=== PATIENT | female | born 1970 | race Caucasian/White ===

== ENCOUNTER → 2024-07-08 08:36 | Outpatient (REF) | payer BC, SELFPAY ==
[2024-07-08 10:02] LABS: % Eosinophils 2.4 % (0-6); % Immature Granulocytes 0.4 % (0-0.5); % Monocytes 8.8 % (1.7-9.3); % Neutrophils 53.4 % (42.2-75.2); Absolute Basophils 0.1 10^3/uL (0-0.2); Absolute Eosinophils 0.1 10^3/uL (0-0.7); Absolute Lymphocytes 1.7 10^3/uL (1.2-3.4); Absolute Monocytes 0.5 10^3/uL (0.1-0.6); Absolute Neutrophils 2.7 10^3/uL (1.4-6.5); Hematocrit 39.5 % (37.0-47.0); Hemoglobin 13.4 g/dL (12.0-16.0); Mean Corp Hgb Conc. 33.9 g/dL (33.0-37.0); Mean Corpuscular Hgb 32.4 pg (27.0-31.0); Mean Corpuscular Volume 95.6 fL (81.0-99.0); Nucleated Red Blood Cells % 0 %; Platelet Count 248 10^3/uL (130-400); Red Blood Cell Count 4.13 10^6/uL (4.20-5.40); Red Cell Dist. Width 12.3 % (11.5-14.5); White Blood Cell Count 5.1 10^3/uL (4.8-10.8)
[2024-07-08 10:39] LABS: ALT (SGPT) 22 U/L (0-35); AST (SGOT) 27 U/L (14-36); Albumin 4.2 g/dl (3.5-5.0); Alkaline Phosphatase 55 U/L (38-126); Blood Urea Nitrogen 10 mg/dl (7-17); Calcium 9.9 mg/dl (8.4-10.2); Carbon Dioxide 30 mmol/L (22-30); Chloride 101 mmol/L (98-107); Glucose 91 mg/dl (70-99); HDL Cholesterol 86 mg/dl; LDL Cholesterol, Calculated 125 mg/dl; Potassium 4.7 mmol/L (3.5-5.1); Sodium 140 mmol/L (135-145); Total Bilirubin 0.4 mg/dl (0.2-1.3); Total Cholesterol 231 mg/dl (50-199); Triglyceride 101 mg/dl (10-149); Very Low Density Lipoprotein 20 mg/dl (0-30); eGFR > 60.00
[2024-07-08 11:09] LABS: TSH Reflex To Free T4 0.02 uIU/ml (0.47-4.68)
[2024-07-08 15:31] LABS: Free T4 0.92 ng/dl (0.78-2.19)
== END ==
LOC: REG 08:36
PROVIDERS: ATTENDING PHYSICIAN Physician Assistant Medical
DX: Z00.01 Encounter for general adult medical examination with abnormal findings (principal); E78.2 Mixed hyperlipidemia
CPT/HCPCS: 36415; 80053; 80061; 84439; 84443; 85025

== ENCOUNTER → 2024-08-17 12:35 | Outpatient (REF) | payer BC, SELFPAY ==
[2024-08-17 14:22] LABS: TSH 0.16 uIU/ml (0.47-4.68)
== END ==
LOC: REG 12:35
PROVIDERS: ATTENDING PHYSICIAN Physician Assistant Medical
DX: R94.6 Abnormal results of thyroid function studies (principal); R79.89 Other specified abnormal findings of blood chemistry
CPT/HCPCS: 36415; 84432; 84443; 86376; 86800

== ENCOUNTER → 2025-01-25 13:49 | Outpatient (REF) | payer BC, SELFPAY ==
[2025-01-25 15:09] LABS: Free T4 1.12 ng/dl (0.78-2.19)
[2025-01-25 15:22] LABS: TSH 0.77 uIU/ml (0.47-4.68)
[2025-01-28 03:35] LABS: Thyroglobulin Antibodies <1.5 IU/mL (0.0-4.0); Thyroid Peroxidase Ab (TPO) 1.6 IU/mL (0.0-9.0)
== END ==
LOC: REG 13:49
PROVIDERS: ATTENDING PHYSICIAN Nurse Practitioner Family; FAMILY PHYSICIAN Physician Assistant Medical
DX: R94.6 Abnormal results of thyroid function studies (principal)
CPT/HCPCS: 36415; 84439; 84443; 84481; 86376; 86800

== ENCOUNTER → 2025-01-28 08:14 | Outpatient (REF) | payer BC, SELFPAY | LOC: WDC 08:14 | PROVIDERS: ATTENDING PHYSICIAN Physician Assistant Medical | DX: Z12.31 Encounter for screening mammogram for malignant neoplasm of breast (principal) | CPT/HCPCS: 77063; 77067 ==